=== PATIENT | female | born 1990 | race Caucasian/White ===

== ENCOUNTER 2017-04-05 18:46 | Emergency (ER) | payer MEDICAID ==
[2017-04-05 19:02] VITALS: RESP 18
[2017-04-05] MEDS ORDERED: CEPHALEXIN 500 MG CAP PO ONE (19:17)
--- NOTE | 2017-04-05 19:22 | EDPHY ---
H & P Time Seen by Provider: 04/05/17 18:55 HPI/ROS: CHIEF COMPLAINT: Right foot swollen and red HISTORY OF PRESENT ILLNESS: 26-year-old female states that last night she noticed redness and swelling at the base of her 4th and 5th toes on the right foot. She had a small amount of erythema extending onto the dorsum of the foot. Patient did not know what might have happened. Questionable bug bite or spider bite or mosquito bite but the patient is unsure. Patient also reports it feels itchy. She took some Benadryl prior to bed. Patient reports he was unable to sleep well secondary to pain. She presents this evening complaining that the redness has spread across the dorsum of the foot and swollen. She has taken an additional dose of Benadryl without significant change in her symptoms. No fevers or chills. No nausea or vomiting. No known trauma. Has taken ibuprofen with minimal relief. No fever, chills, chest pain, shortness of breath, palpitations, vomiting, diarrhea, urinary complaints, headache, lightheadedness. Denies shortness of breath, throat tightness, or rash REVIEW OF SYSTEMS: Aside from elements discussed in the HPI, a comprehensive 10-point review of systems was reviewed and is negative. PAST MEDICAL HISTORY: Patient denies. SOCIAL HISTORY: Smoker. GENERAL APPEARANCE: Pleasant, no acute distress. FOCUSED EXAM OF right lower extremity: Mild erythema is present across the dorsum of the right foot with mild swelling. Slightly warm to the touch. No definitive site of a bite or injury. No hives. Erythema is confined to the dorsum of the foot. No lesions noted on the plantar surface. Normal capillary refill. Normal sensation. Smoking Status: Current every day smoker Constitutional: Initial Vital Signs Temperature (C) 36.6 C 04/05/17 18:58 Heart Rate 78 04/05/17 18:58 Respiratory Rate 18 04/05/17 18:58 Blood Pressure 114/73 04/05/17 18:58 O2 Sat (%) 98 04/05/17 18:58 O2 Delivery Mode Room Air Allergies/Adverse Reactions: No Known Allergies Allergy (Verified 06/24/13 08:25) Home Medications: Medication Instructions Recorded Bcp 06/24/13 Cephalexin [Keflex (RX)] 500 mg PO QID 5 Days 04/05/17 MDM/Departure - MDM Medications Given: Discontinued Medications Cephalexin HCl (Keflex) 500 mg PO EDNOW ONE PRN Reason: Protocol Stop: 04/05/17 19:18 Last Admin: 04/05/17 19:21 Dose: 500 mg ED Course/Re-evaluation: 26-year-old with mild erythema across the dorsum of the foot. There is no abscess. This may be a local reaction to a bite or sting. However, the patient has taken Benadryl with no improvement in her symptoms. She was placed on Keflex. Area of redness was outlined. She understands reasons to return. Differential Diagnosis: Differential diagnoses for the patient's symptom complex was considered including but not limited to cellulitis, abscess, local reaction to bite or sting, occult trauma. - Depart Disposition: Home, Routine, Self-Care Clinical Impression: Possible insect bite Cellulitis Qualifiers: Site of cellulitis: extremity Site of cellulitis of extremity: lower extremity Laterality: right Qualified Code(s): L03.115 - Cellulitis of right lower limb Condition: Good Instructions: Cellulitis (ED), Insect Bite or Sting (ED) Additional Instructions: 1. Please take antibiotic as directed. Keflex 500 mg by mouth 4 times a day for the next 5 days. 2. Please take regular doses of antihistamine to help with any local allergic reactions. You may use Benadryl 25 mg every 8 hours or a nonsedating antihistamine such as Claritin once a day. 3. Ice to the foot for 15-20 minutes every 3-4 hours for the next 24 hours. 4. Keep the foot elevated as much as possible for the next 24 hours. 5. Use ibuprofen as needed for pain. 400-600 mg every 8 hours. Return to the emergency department if your redness is worse despite these measures. Prescriptions: Cephalexin [Keflex (RX)] 500 mg PO QID 5 Days Referrals: Estrella Young MD [Primary Care Provider] - As per Instructions
[2017-04-05 19:32] VITALS: BP 112/72; PULSE 76; TEMP 98.2; O2SAT 96
== END 2017-04-05 19:35 | disposition home or self-care (01) ==
LOC: CED 18:46
DX: L03.115 Cellulitis of right lower limb (principal); F17.200 Nicotine dependence, unspecified, uncomplicated

== ENCOUNTER 2017-08-11 08:19 | Emergency (ER) | payer MEDICAID ==
[2017-08-11 08:31] VITALS: BP 105/66; PULSE 80; RESP 16; TEMP 97.9; O2SAT 96
[2017-08-11] MEDS ORDERED: ACETAMINOPHEN 500 MG TAB PO ONE (09:11)
--- NOTE | 2017-08-11 09:13 | EDPHY ---
H & P Time Seen by Provider: 08/11/17 08:58 HPI/ROS: This patient presents with a 3 day history of left lumbar back ache that extends into the left buttock and posteriorly down her leg to mid thigh. She describes this as worsening with movement. She has minimal relief from ibuprofen. She took 800 mg this morning prior to arrival. At times the pain is severe with movement baseline it is moderate intensity. She has never had this type of pain before. She does recall any acute injuries. She drove herself by private vehicle for further evaluation of her symptoms. ROS: Constitutional: No fevers HEENT: No complaints Pulmonary: No shortness of breath or cough GI: No belly pain : No UTI symptoms. Last menstrual.-current normal timing Integumentary: No skin rash. Neuro: No numbness tingling or focal weakness. No bowel or bladder incontinence. 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 Smoking Status: Current every day smoker Physical Exam: Physical Exam Vital signs are normal. General: No acute distress Eyes: Pupils equal and react to light. Extraocular motions are intact. Lungs: Clear to auscultation bilaterally with no rales rhonchi or wheeze. No respiratory distress. Cardiac: Regular rate and rhythm, no murmur gallop rub Back: No midline tenderness. She has mild left paraspinous muscular tenderness extends the left sciatic notch. Straight leg raise is negative bilaterally. Skin: No rash or pallor. Neuro: Alert and oriented x3. She maintains 2+ patellar and Achilles DTRs bilaterally. She maintains 5/5 strength in great toe dorsiflexion plantar flexion bilaterally. She has no light touch sensory deficits and appreciate no other sensorimotor deficits. Initial differential diagnosis: Muscle strain with sciatica, doubt disc herniation. Doubt UTI or other Constitutional: Initial Vital Signs Temperature (C) 36.6 C 08/11/17 08:28 Heart Rate 80 08/11/17 08:28 Respiratory Rate 16 08/11/17 08:28 Blood Pressure 105/66 08/11/17 08:28 O2 Sat (%) 96 08/11/17 08:28 O2 Delivery Mode Room Air Allergies/Adverse Reactions: No Known Allergies Allergy (Verified 08/11/17 08:26) Home Medications: Medication Instructions Recorded Methocarbamol [Robaxin 750 mg (*)] 750 - 1,500 mg PO QID PRN #30 tab 08/11/17 Prozac 10 MG (*) 08/11/17 Xanax 08/11/17 MDM/Departure - MDM Medications Given: Discontinued Medications Acetaminophen (Tylenol) 1,000 mg PO EDNOW ONE Stop: 08/11/17 09:12 Last Admin: 08/11/17 09:15 Dose: 1,000 mg ED Course/Re-evaluation: Discussion: Patient's history and findings are classic for sciatica. No evidence of cauda equina, sensory deficits or other concerning findings. I counseled regarding this and demonstrated stretches that may be of benefit. Planned a have her continue the NSAIDs with the addition of methocarbamol muscle relaxant and Tylenol. She is given a dose of Tylenol here. - Depart Disposition: Home, Routine, Self-Care Clinical Impression: Sciatica Qualifiers: Laterality: left Qualified Code(s): M54.32 - Sciatica, left side Condition: Good Instructions: Sciatica (ED) Additional Instructions: Diagnosis: Sciatica Plan: Ibuprofen 400-600 mg per 6 hours regularly for the next week then as needed. Methocarbamol muscle relaxants as needed. Tylenol in addition as needed for pain. No driving alcohol or work on methocarbamol Starts daily stretches prior to taking muscle relaxants in the morning. 3-5 minutes each of: "Butterfly stretch," "Sphinx stretch", "pigeon stretch", and hamstring stretch. Avoid lifting more than 5-10 pounds until symptoms improve. Call your primary care physician for a followup appointment in 3-7 days. Go to the emergency department for worsening of your symptoms despite the treatment plan. Prescriptions: Methocarbamol [Robaxin 750 mg (*)] 750 - 1,500 mg PO QID PRN #30 tab PRN Reason: Muscle Spasms Referrals: Evelin Momin, [Primary Care Provider] - As per Instructions
== END 2017-08-11 09:21 | disposition home or self-care (01) ==
LOC: CED 08:19
DX: M54.32 Sciatica, left side (principal); F17.200 Nicotine dependence, unspecified, uncomplicated